=== PATIENT | male | born 1960 | race African-American/Black ===

== ENCOUNTER 2020-11-11 09:54 | Emergency (ER) | payer OTHER, SELFPAY ==
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
[2020-11-11 10:30] VITALS: BP 113/83; PULSE 67; RESP 16; TEMP 36.6; O2SAT 97
[2020-11-11] MEDS: DEXAMETHASONE 4 MG TABLET 12 MG PO (11:15)
[2020-11-11] MEDS: BACLOFEN 10 MG TABLET 20 MG PO (11:15)
--- NOTE | 2020-11-11 11:15 | PC.NURSE ---
Pt declined toradol injections.
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
== END 2020-11-11 12:20 | disposition home or self-care (01) ==
PROVIDERS: Emergency Provider Emergency Medicine
DX: M54.5 Low back pain (principal); R51.9 Headache, unspecified; M79.661 Pain in right lower leg; M25.569 Pain in unspecified knee; E11.9 Type 2 diabetes mellitus without complications; F17.210 Nicotine dependence, cigarettes, uncomplicated; M54.16 Radiculopathy, lumbar region; V49.9XXA Car occupant (driver) (passenger) injured in unspecified traffic accident, initial encounter
CPT/HCPCS: 70450; 72125; 99283; 99284; A9270; J8540

== ENCOUNTER 2022-08-26 07:46 | Emergency (ER) | payer OTHER, SELFPAY ==
[2022-08-26 07:50] VITALS: BP 129/79; PULSE 70; RESP 18; TEMP 36.6; O2SAT 96
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
== END 2022-08-26 08:05 | disposition left against medical advice (07) ==
PROVIDERS: Emergency Provider Family Medicine
DX: L03.317 Cellulitis of buttock (principal); E11.9 Type 2 diabetes mellitus without complications; F17.210 Nicotine dependence, cigarettes, uncomplicated
CPT/HCPCS: 99281